=== PATIENT | female | born 1945 | race Caucasian/White ===

== ENCOUNTER 2021-05-06 09:39 | Outpatient (CLI) | payer MEDICARE, OTHER | END 2021-05-06 09:40 | disposition home or self-care (01) | LOC: RAD 09:39 | PROVIDERS: ATTEND Internal Medicine Gastroenterology | DX: Q43.8 Other specified congenital malformations of intestine (principal); Z86.010 Personal history of colon polyps; Z53.9 Procedure and treatment not carried out, unspecified reason | CPT/HCPCS: 74018 ==

== ENCOUNTER 2021-10-17 09:30 | Outpatient (CLI) | payer MEDICARE ==
[~2021-10-17 09:30] MED LIST: Magnevist 469MG/ML 20 ML VIAL ONE
== END 2021-10-17 09:31 | disposition home or self-care (01) ==
LOC: MRI 09:30
PROVIDERS: ATTEND Physician Assistant Medical
DX: K76.9 Liver disease, unspecified (principal); K76.89 Other specified diseases of liver; N28.1 Cyst of kidney, acquired; D35.01 Benign neoplasm of right adrenal gland
CPT/HCPCS: 74183; 82565; A9579